=== PATIENT | female | born 1995 | race Caucasian/White ===

== ENCOUNTER 2018-01-14 18:45 | Emergency (ER) | payer OTHER ==
[2018-01-14] MEDS ORDERED: KETOROLAC TROMETHAMINE 60 MG/2 ML SDV IM ONE (19:30)
--- NOTE | 2018-01-14 19:31 | ER Document Report ---
ED Medical Screen (RME) - General Chief Complaint: Shortness Of Breath Stated Complaint: TROUBLE BREATHING,BACK PAIN,STOMACH PAIN Time Seen by Provider: 01/14/18 19:29 Notes: 22 years old female presents today with abdominal pain and cramps since this morning had an episode this morning then again after eating pizza during lunchtime. The description of the pain is that it comes like a sharp crampy pain over the epigastrium and radiated to the back and make a crunch and double over for a while and then relieves it. Denies any fever chills nausea vomiting. Currently feeling comfortable. Denies any diarrhea or constipation. I have greeted and performed a rapid initial assessment of this patient. A comprehensive ED assessment and evaluation of the patient, analysis of test results and completion of the medical decision making process will be conducted by additional ED providers. PHYSICAL EXAMINATION: GENERAL: Well-appearing, well-nourished and in no acute distress. HEAD: Atraumatic, normocephalic. EYES: Pupils equal round extraocular movements intact, conjunctiva are normal. ENT: Nares patent NECK: Normal range of motion LUNGS: No respiratory distress Abdomen-tenderness over the right upper quadrant noted with guarding. Musculoskeletal: Normal range of motion NEUROLOGICAL: Normal speech, normal gait. PSYCH: Normal mood, normal affect. SKIN: Warm, Dry, normal turgor, no rashes or lesions noted. TRAVEL OUTSIDE OF THE [place] IN LAST 30 DAYS: No - Related Data Allergies/Adverse Reactions: No Known Allergies Allergy (Unverified 01/14/18 18:47) Past Medical History Renal/ Medical History: Denies: Hx Peritoneal Dialysis
[2018-01-14 20:20] LABS: ABSOLUTE EOSINOPHILS # (AUTO) 0.1 10^3/uL (0.0-0.6); ABSOLUTE MONOCYTES (AUTO) 0.3 10^3/uL (0.1-1.4); ABSOLUTE NEUT (AUTO) 6.2 10^3/uL (1.7-8.2); BASOPHILS % (AUTO) 0.2 % (0-2); EOSINOPHILS % (AUTO) 1.1 % (0-6); HEMATOCRIT 39.8 % (36.0-47.0); HEMOGLOBIN 13.6 g/dL (12.0-15.5); LYMPHOCYTES % (AUTO) 12.9 % (13-45); MEAN CORPUSCULAR HEMOGLOBIN 30.4 pg (27.0-33.4); MEAN CORPUSCULAR HGB CONC 34.2 g/dL (32.0-36.0); MEAN CORPUSCULAR VOLUME 89 fl (80-97); MONOCYTES % (AUTO) 3.4 % (3-13); PLATELET COUNT 268 10^3/uL (150-450); RED BLOOD COUNT 4.47 10^6/uL (3.72-5.28); RED CELL DISTRIBUTION WIDTH 12.4 % (11.5-14.0); SEGMENTED NEUTROPHILS % (AUTO) 82.4 % (42-78); TOTAL CELLS COUNTED % (AUTO) 100 %; WHITE BLOOD COUNT 7.6 10^3/uL (4.0-10.5)
[2018-01-14 20:33] LABS: ALANINE AMINOTRANSFERASE 36 U/L (9-52); ALBUMIN 4.7 g/dL (3.5-5.0); ALKALINE PHOSPHATASE 37 U/L (38-126); ANION GAP 14 (5-19); ASPARTATE AMINO TRANSFERASE 38 U/L (14-36); BILIRUBIN,DIRECT 0.1 mg/dL (0.0-0.4); BILIRUBIN,TOTAL 1.5 mg/dL (0.2-1.3); BLOOD UREA NITROGEN 10 mg/dL (7-20); CALCIUM 9.8 mg/dL (8.4-10.2); CARBON DIOXIDE 26 mmol/L (22-30); CHLORIDE 105 mmol/L (98-107); GLUCOSE 92 mg/dL (75-110); LIPASE 53.4 U/L (23-300); POTASSIUM 4.4 mmol/L (3.6-5.0); SODIUM 144.8 mmol/L (137-145); TOTAL PROTEIN 7.8 g/dL (6.3-8.2)
--- NOTE | 2018-01-14 21:45 | RADIOLOGY REPORT (SQ) ---
EXAM DESCRIPTION: U/S ABDOMEN LIMITED W/O DOP COMPLETED DATE/TIME: 01/14/2018 9:22 pm REASON FOR STUDY: Gallbladder COMPARISON: None. TECHNIQUE: Dynamic and static grayscale images acquired of the abdomen and recorded on PACS. Additio nal selected color Doppler and spectral images recorded. LIMITATIONS: None. FINDINGS: PANCREAS: No masses. Visualized pancreatic duct normal caliber. LIVER: No masses. Echotexture normal. LIVER VASCULATURE: Normal directional flow of the main portal vein and hepatic veins. GALLBLADDER: No stones. Normal wall thickness. No pericholecystic fluid. ULTRASOUND-DETECTED HUNTER'S SIGN: Negative. INTRAHEPATIC DUCTS AND COMMON DUCT: CBD and intrahepatic ducts normal caliber. No filling defects. INFERIOR VENA CAVA: Normal flow. AORTA: No aneurysm. RIGHT KIDNEY: Normal size. Normal echogenicity. No solid or suspicious masses. No hydronephrosis. No calcifications. PERITONEAL AND RIGHT PLEURAL SPACE: No ascites or effusions. OTHER: No other significant findings. IMPRESSION: No acute findings. TECHNICAL DOCUMENTATION: JOB ID: [id number] [place]-72 2010 [employer]- All Rights Reserved Reading location - IP/workstation name: [email or web address]
--- NOTE | 2018-01-14 21:46 | ER Document Report ---
ED General - General Mode of Arrival: Ambulatory Information source: Patient TRAVEL OUTSIDE OF THE [place] IN LAST 30 DAYS: No <ANDRES APARICIO - Last Filed: 01/14/18 22:27> <JEREMIAS HOLDEN - Last Filed: 01/14/18 23:32> - General Chief Complaint: Shortness Of Breath Stated Complaint: TROUBLE BREATHING,BACK PAIN,STOMACH PAIN Time Seen by Provider: 01/14/18 19:29 Notes: Patient is a 22-year-old female presenting to the emergency department complaining of abdominal cramps onset today. Patient states that around 1200 her abdomen started to cramp and she proceeded to go to urgent care. At urgent care, patient states her pain had ceased, a urinalysis was performed and she was sent home with nasal spray. Patient states after she got home and ate pizza her abdominal cramps came back lasting around 25 minutes. Patient states the cramps were so severe she was doubled over in pain and had shortness of breath. Patient describes the abdominal cramps as a tightness that radiates into her lower back. Patient denies any fevers, vomiting or chills. Patients last menstrual cycle was 2 weeks ago. (ANDRES APARICIO) - Related Data Allergies/Adverse Reactions: No Known Allergies Allergy (Unverified 01/14/18 18:47) Past Medical History - General Information source: Patient - Social History Smoking Status: Unknown if Ever Smoked Family History: Reviewed & Not Pertinent Patient has suicidal ideation: No Patient has homicidal ideation: No <ANDRES APARICIO - Last Filed: 01/14/18 22:27> Review of Systems - Review of Systems Constitutional: No symptoms reported EENT: No symptoms reported Cardiovascular: No symptoms reported Respiratory: No symptoms reported Gastrointestinal: See HPI, Abdominal pain Genitourinary: No symptoms reported Female Genitourinary: No symptoms reported Musculoskeletal: No symptoms reported Skin: No symptoms reported Hematologic/Lymphatic: No symptoms reported Neurological/Psychological: No symptoms reported -: Yes All other systems reviewed and negative <ANDRES APARICIO - Last Filed: 01/14/18 22:27> Physical Exam <ANDRES APARICIO - Last Filed: 01/14/18 22:27> <JEREMIAS HOLDEN - Last Filed: 01/14/18 23:32> - Notes Notes: GENERAL: Alert, interacts well. No acute distress. HEAD: Normocephalic, atraumatic. EYES: Pupils equal, round, and reactive to light. Extraocular movements intact. ENT: Oral mucosa moist, tongue midline. NECK: Full range of motion. Supple. Trachea midline. LUNGS: Clear to auscultation bilaterally, no wheezes, rales, or rhonchi. No respiratory distress. HEART: Regular rate and rhythm. No murmurs, gallops, or rubs. ABDOMEN: Soft, non-tender with deep palpation. Non-distended. Bowel sounds present in all 4 quadrants. EXTREMITIES: Moves all 4 extremities spontaneously. NEUROLOGICAL: Alert and oriented x3. Normal speech. PSYCH: Normal affect, normal mood. SKIN: Warm, dry, normal turgor. No rashes or lesions noted. BACK: No tenderness to palpation. No CVA tenderness to percussion. (ANDRES APARICIO) Course - Laboratory Result Diagrams: 01/14/18 20:03 01/14/18 20:03 <ANDRES APARICIO - Last Filed: 01/14/18 22:27> - Laboratory Result Diagrams: 01/14/18 20:03 01/14/18 20:03 - Diagnostic Test Radiology reviewed: Reports reviewed - 2 view abdomen is unremarkable. <JEREMIAS HOLDEN - Last Filed: 01/14/18 23:32> - Re-evaluation Re-evalutation: 01/14/18 23:24 CBC is 7600 with 82 segs 13 lymphs which is normal. Chemistries are unremarkable, LFTs are unremarkable, test is negative, lipase is low. Urinalysis is a little concentrated with specific gravity 1.025, otherwise unremarkable. Two-view abdomen does show a lot of stool in the colon but is essentially unremarkable. Gallbladder ultrasound was normal. (JEREMIAS HOLDEN) - Laboratory Laboratory results interpreted by az: 01/14/18 01/14/18 20:03 20:03 Seg Neutrophils % 82.4 H Lymphocytes % 12.9 L Total Bilirubin 1.5 H AST 38 H Alkaline Phosphatase 37 L Discharge <ANDRES APARICIO - Last Filed: 01/14/18 22:27> <JEREMIAS HOLDEN - Last Filed: 01/14/18 23:32> - Discharge Clinical Impression: Abdominal pain Qualifiers: Abdominal location: periumbilical Qualified Code(s): R10.33 - Periumbilical pain Condition: Stable Disposition: HOME, SELF-CARE Additional Instructions: Abdominal Pain: There are many causes of abdominal pain. Pain can mean a serious problem requiring surgery (such as appendicitis). It can also be an innocent problem that goes away on its own (such as a viral infection). Often, time must pass to determine the cause of pain. The physician does not feel that hospitalization is necessary, at present. Things may change within the next 24 hours. Call the doctor or come back for re- examination if any problems occur, such as: (1) Pain that becomes more severe, steady, or becomes concentrated in one specific area. Also, pain that is more severe with movement or coughing. (2) Vomiting that persists or becomes more frequent. (3) Blood in the vomitus, urine, or bowel movements. Blood in the stool may have a tarry or black appearance. (4) Shaking chills or fever greater than 100 degrees F. (5) The abdomen becomes more distended or swollen. (6) Bowel movements cease. (7) Failure to improve as expected. There was no clear explanation for the severe abdominal cramping pain you experienced earlier today. Your lab work does suggest that you need to drink more water, but there is no suggestion of infection or other serious condition. The x-rays show a lot of stool in your colon and the cramping may be related to that. If you do have normal bowel movements every day, taking a stool softener might be a good idea. Follow-up with your medical doctor if you continue having the cramping discomfort. Take the pain medication as dispensed to help control your pain during your flight home if needed. RETURN TO THE EMERGENCY ROOM IF ANY NEW OR WORSENING SYMPTOMS. Scribe Attestation: 01/14/18 22:32 I personally performed the services described in the documentation, reviewed and edited the documentation which was dictated to the scribe in my presence, and it accurately records my words and actions. (JEREMIAS HOLDEN) Scribe Documentation - Scribe Written by Sgibkonstantin:: Sapphire Dalal, 01/14/2018 22:04 acting as scribe for :: Isaac <ANDRES APARICIO - Last Filed: 01/14/18 22:27>
--- NOTE | 2018-01-14 22:05 | RADIOLOGY REPORT (SQ) ---
EXAM DESCRIPTION: ABDOMEN 2 VIEWS COMPLETED DATE/TIME: 01/14/2018 9:56 pm REASON FOR STUDY: Severe abdominal cramps COMPARISON: None. NUMBER OF VIEWS: Two views. TECHNIQUE: Supine and erect/decubitus radiographic images of the abdomen acquired. LIMITATIONS: None. FINDINGS: FREE AIR: None. No abnormal gas collections. LUNG BASES: Clear. BOWEL GAS PATTERN: Nonobstructive pattern. No dilated loops or air fluid levels. CALCIFICATIONS: No suspicious calcifications. SOFT TISSUES: No gross mass or suggestion of organomegaly. HARDWARE: None in the abdomen. BONES: No acute fracture. No worrisome bone lesions. OTHER: No other significant finding. IMPRESSION: NO RADIOGRAPHIC EVIDENCE FOR ACUTE ABDOMINAL DISEASE. TECHNICAL DOCUMENTATION: JOB ID: [id number] [place]-[id number] 2010 [employer]- All Rights Reserved Reading location - IP/workstation name: [employer]
[2018-01-14 23:23] LABS: APPEARANCE,URINE SLIGHTLY-CLOUDY; BILIRUBIN,URINE NEGATIVE (NEGATIVE); COLOR,URINE YELLOW; GLUCOSE, URINE NEGATIVE (NEGATIVE); KETONES,URINE NEGATIVE (NEGATIVE); LEUKOCYTE ESTERASE,URINE NEGATIVE (NEGATIVE); NITRITE,URINE NEGATIVE (NEGATIVE); PROTEIN,URINE NEGATIVE (NEGATIVE); URINE SPECIFIC GRAVITY 1.025; UROBILINOGEN,URINE NEGATIVE mg/dL (<2.0)
[2018-01-14] MEDS ORDERED: HYDROCODONE/ACETAMINOPHEN 5-325 MG (6 TAB/ER DISP) PO PRN (23:32)
[2018-01-14 23:46] VITALS: BP 103/62
== END 2018-01-14 23:45 | disposition home or self-care (01) ==
LOC: ER 18:45
DX: R10.33 Periumbilical pain (principal); R06.02 Shortness of breath
CPT/HCPCS: 99285; 96372; 36415; 83690; 84703; 85025; 80076; 80048; 81001; 74019; 76705; J1885